=== PATIENT | female | born 1950 | race Caucasian/White ===

== ENCOUNTER 2019-03-25 13:09 | Emergency (ER) | payer MEDICARE, BC ==
[~2019-03-25] VITALS: Ht 160 cm; Wt 61.4 kg
[2019-03-25] MEDS ORDERED: SYNT75TA PO (13:18)
[2019-03-25 15:48] LABS: BASO # 0.1 10^3/uL (0.0-0.2); EOS # 0.1 10^3/uL (0.0-0.50); EOS % 1.4 % (0.0-3.0); HEMOGLOBIN 14.3 g/dl (12.0-15.5); LYMPH # 1.4 10^3/uL (1.5-4.5); LYMPH % 26.7 % (24.0-44.0); MEAN CORPUSCULAR HEMOGLOBIN 31.7 pg (27.0-33.0); MEAN CORPUSCULAR HGB CONC 32.5 g/dl (32.0-36.5); MEAN CORPUSCULAR VOLUME 97.6 fl (80.0-96.0); MONO # 0.6 10^3/uL (0.0-0.8); MONO % 11.5 % (0.0-5.0); NEUTROPHILS # 3.1 10^3/uL (1.8-7.7); NEUTROPHILS % 59.4 % (36.0-66.0); PLATELET COUNT, AUTOMATED 181 10^3/uL (150-450); RED BLOOD COUNT 4.51 10^6/uL (4.00-5.40); WHITE BLOOD COUNT 5.1 10^3/uL (4.0-10.0)
[2019-03-25 16:08] LABS: ERYTHROCYTE SEDIMENTATION RATE 5 mm/hr (0-30)
[2019-03-25] MEDS ORDERED: PROHANCE 279.3MG/ML 15ML VIAL (A9576) As Ordered ONE (20:41)
--- NOTE | 2019-03-25 23:08 | REPVR ---
EXAM: MR Cervical Spine Without and With Contrast EXAM DATE/TIME: 03/25/2019 9:22 PM CLINICAL HISTORY: 68 years old, female; Disturbance of skin sensation; Other: PT states feeling of being shocked, nki; Additional info: Per neurology request - lhermitte's sign TECHNIQUE: Imaging protocol: Multiplanar magnetic resonance images of the cervical spine without and with intravenous contrast. Contrast material: PROHANCE; Contrast volume: 16 ml; Contrast route: 22 G ANGIO; COMPARISON: No relevant prior studies available. FINDINGS: Vertebrae: Unremarkable. Spinal cord: Normal signal. No cord compression. C2-C3: No significant disc disease. No significant spinal stenosis. C3-C4: No significant disc disease. No significant spinal stenosis. C4-C5: Posterior disc protrusion at C4-5 effaces the ventral subarachnoid space without significant cord impingement. Bilateral moderate to severe foraminal stenosis secondary to bilateral uncinate joint hypertrophic change. C5-C6: Posterior disc osteophyte complex at C5-6 effaces the ventral subarachnoid space with mild cord impingement. There is severe bilateral foraminal stenosis secondary to uncinate joint hypertrophic change. C6-C7: Posterior disc osteophyte complex at C6-7 effacing the ventral subarachnoid space and abuts but does not compress the spinal cord. There is moderate bilateral foraminal stenosis secondary to uncinate joint hypertrophic change. C7-T1: No significant disc disease. No significant spinal stenosis. Postcontrast imaging: No abnormal enhancement. Soft tissues: Unremarkable. IMPRESSION: Degenerative spondylosis. Multilevel bilateral foraminal stenoses as above. Electronically signed by: He Martinez On 03/25/2019 23:07:46 PM
--- NOTE | 2019-03-25 23:11 | REPVR ---
EXAM: MR Head Without and With Contrast EXAM DATE/TIME: 03/25/2019 9:22 PM CLINICAL HISTORY: 68 years old, female; Other: PT states feeling of being shocked, nki; Additional info: Per neurology request - lhermitte's sign TECHNIQUE: Imaging protocol: MR of the head without and with intravenous contrast. Contrast material: PROHANCE; Contrast volume: 16 ml; Contrast route: 22G ANGIO; COMPARISON: No relevant prior studies available. FINDINGS: Brain: Peripheral calcified parenchymal calcification in the white matter of the left parietal lobe. 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 Ventricles: Normal. No ventriculomegaly. Bones/joints: Unremarkable. Soft tissues: Normal. Sinuses: Normal as visualized. No acute sinusitis. Mastoid air cells: Normal as visualized. No mastoid effusion. Orbits: Unremarkable. Other findings: No abnormal enhancement. IMPRESSION: No acute findings. Electronically signed by: He Martinez On 03/25/2019 23:11:08 PM
[2019-03-26 00:03] VITALS: BP 132/63
--- NOTE | 2019-03-28 20:00 | ED PDOC ---
Post-Departure Follow-Up dr murdock faxed formal report of mri c spine for fu Jb Ring MD Mar 28, 2019 20:00
== END 2019-03-26 00:33 | disposition home or self-care (01) ==
LOC: M ED 13:09
DX: M47.812 Spondylosis without myelopathy or radiculopathy, cervical region (principal); M48.02 Spinal stenosis, cervical region; E07.9 Disorder of thyroid, unspecified; Z79.899 Other long term (current) drug therapy
CPT/HCPCS: 70553; 72156; 80047; 85025; 85652; 86140; 99284; A9576